=== PATIENT | female | born 1990 | race Caucasian/White ===

== ENCOUNTER 2016-10-11 20:34 | Emergency (ER) | payer OTHER ==
[~2016-10-11] VITALS: Ht 170.2 cm; Wt 86.2 kg
[2016-10-11 20:49] VITALS: BP_SYST 126
== END 2016-10-11 22:16 | disposition home or self-care (01) ==
LOC: SED 20:34
DX: S20.20XA Contusion of thorax, unspecified, initial encounter (principal); W19.XXXA Unspecified fall, initial encounter; Y93.89 Activity, other specified; Y99.8 Other external cause status; Y92.89 Other specified places as the place of occurrence of the external cause
CPT/HCPCS: 71100; 81025; 99284

== ENCOUNTER 2016-11-17 20:58 | Emergency (ER) | payer OTHER ==
[~2016-11-17] VITALS: Ht 170.2 cm; Wt 86.2 kg
[2016-11-17 21:53] VITALS: BP 109/64; PULSE 75; RESP 14; TEMP 97.9; O2SAT 99
[2016-11-17 22:22] LABS: BILIRUBIN,URINE NEGATIVE (NEGATIVE); BLOOD, URINE 1+ (NEGATIVE); CLARITY/URINE HAZY (CLEAR); COLOR,URINE YELLOW (YELLOW); GLUCOSE,URINE NEGATIVE (NEGATIVE); KETONES,URINE NEGATIVE (NEGATIVE); LEUKOCYTE ESTERASE ,URINE 2+ (NEGATIVE); NITRITE, URINE NEGATIVE (NEGATIVE); PROTEIN URINE NEGATIVE (NEGATIVE); UROBILINOGEN,URINE 0.2 (0.2-1.0)
[2016-11-17 22:28] LABS: RBC,URINE 0-3 /HPF (0-3); WBC,URINE 50-80 /HPF (0-3)
[2016-11-17 22:29] LABS: BACTERIA,URINE MODERATE /HPF (None Seen); MUCUS,URINE None Seen /LPF (None Seen)
[2016-11-18] MEDS ORDERED: cefTRIAXone 250 MG VIAL IM ONE (00:30)
[2016-11-18] MEDS ORDERED: AZITHROMYCIN 100 MG/5 ML SUSPENSION PO ONE (00:30)
[2016-11-18] MEDS ORDERED: AZITHROMYCIN 250 MG TABLET ONE (00:46)
[2016-11-18 01:15] VITALS: BP 110/62; PULSE 75; RESP 14; TEMP 97.9; O2SAT 99
[2016-11-20 07:07] LABS: CHLAMYDIA TRACHOMATIS NAA Negative (Negative); NEISSERIA GONORRHOEAE NAA Negative (Negative)
== END 2016-11-18 01:15 | disposition home or self-care (01) ==
LOC: SED 20:58
DX: N39.0 Urinary tract infection, site not specified (principal); Z11.3 Encounter for screening for infections with a predominantly sexual mode of transmission
CPT/HCPCS: 81000; 87086; 87491; 87591; 96372; 99284; J0696; Q0144; 87186-TC

== ENCOUNTER 2017-02-25 22:08 | Emergency (ER) | payer OTHER ==
[~2017-02-25] VITALS: Ht 170.2 cm; Wt 86.2 kg
[2017-02-25 22:08] VITALS: BP_SYST 113
[2017-02-25 23:35] VITALS: BP_SYST 113
== END 2017-02-25 23:35 | disposition home or self-care (01) ==
LOC: SED 22:08
DX: F41.9 Anxiety disorder, unspecified (principal); V49.9XXA Car occupant (driver) (passenger) injured in unspecified traffic accident, initial encounter; Y93.89 Activity, other specified; Y92.89 Other specified places as the place of occurrence of the external cause; Y99.8 Other external cause status
CPT/HCPCS: 99283

== ENCOUNTER 2017-04-02 12:55 | Emergency (ER) | payer OTHER ==
[~2017-04-02] VITALS: Ht 170.2 cm; Wt 86.2 kg
[2017-04-02 13:07] VITALS: BP 122/69; PULSE 91; RESP 16; TEMP 97.6; O2SAT 98
[2017-04-02] MEDS ORDERED: KETOROLAC TROMETHAMINE 60 MG/2 ML VIAL IM ONE (13:30)
[2017-04-02] MEDS ORDERED: DEXAMETHASONE SOD PHOSPHATE 10 MG/ML VIAL IM ONE (13:30)
[2017-04-02 15:50] VITALS: BP 120/65; PULSE 86; RESP 17; TEMP 97.6; O2SAT 98
== END 2017-04-02 15:50 | disposition home or self-care (01) ==
LOC: SED 12:55
DX: M54.17 Radiculopathy, lumbosacral region (principal); R03.0 Elevated blood-pressure reading, without diagnosis of hypertension; M25.561 Pain in right knee; K21.9 Gastro-esophageal reflux disease without esophagitis
CPT/HCPCS: 72131; 81025; 96372; 99284; J1100; J1885

== ENCOUNTER 2018-01-04 17:22 | Emergency (ER) | payer OTHER ==
[~2018-01-04] VITALS: Ht 170.2 cm; Wt 86.2 kg
[2018-01-04 17:33] VITALS: BP_SYST 139
[2018-01-04] MEDS ORDERED: AZITHROMYCIN 250 MG TABLET PO ONE (18:00)
[2018-01-04] MEDS ORDERED: cefTRIAXone 250 MG VIAL IM ONE (18:00)
[2018-01-04 18:03] LABS: BILIRUBIN,URINE NEGATIVE (NEGATIVE); BLOOD, URINE 3+ (NEGATIVE); CLARITY/URINE SL HAZY (CLEAR); COLOR,URINE YELLOW (YELLOW); GLUCOSE,URINE NEGATIVE (NEGATIVE); KETONES,URINE NEGATIVE (NEGATIVE); LEUKOCYTE ESTERASE ,URINE 1+ (NEGATIVE); NITRITE, URINE NEGATIVE (NEGATIVE); PROTEIN URINE NEGATIVE (NEGATIVE); UROBILINOGEN,URINE 0.2 (0.2-1.0)
[2018-01-04 18:29] LABS: RBC,URINE 0-3 /HPF (0-3); WBC,URINE 0-3 /HPF (0-3)
[2018-01-04 18:30] LABS: BACTERIA,URINE FEW /HPF (None Seen); MUCUS,URINE None Seen /LPF (None Seen)
[2018-01-04 18:45] VITALS: BP_SYST 130
[2018-01-07 01:22] LABS: NEISSERIA GONORRHOEAE NAA Negative (Negative)
== END 2018-01-04 18:45 | disposition home or self-care (01) ==
LOC: SED 17:22
DX: Z11.3 Encounter for screening for infections with a predominantly sexual mode of transmission (principal); A74.9 Chlamydial infection, unspecified; N39.0 Urinary tract infection, site not specified; N30.90 Cystitis, unspecified without hematuria; R03.0 Elevated blood-pressure reading, without diagnosis of hypertension; K21.9 Gastro-esophageal reflux disease without esophagitis
CPT/HCPCS: 81000; 81025; 87086; 87491; 87591; 96372; 99284; J0696; Q0144

== ENCOUNTER 2019-01-25 22:07 | Emergency (ER) | payer OTHER ==
[~2019-01-25] VITALS: Ht 170.2 cm; Wt 86.2 kg
--- NOTE | 2019-01-25 22:14 | NUR ---
Patient to ER bed 6 to gown for evaluation. Side rails up.
[2019-01-25 22:18] VITALS: BP_SYST 121
--- NOTE | 2019-01-25 22:57 | NUR ---
Dr. Zhu bedside for Pt eval
--- NOTE | 2019-01-25 23:05 | NUR ---
Pt BIB family to ED C/O right shoulder pain radiating to the right arm and down the back for 2 weeks, worse today. Pt also reports of right-sided forehead pain and radiation of pain to her right leg when standing. She describes her symptoms as sharp in nature, rating it as 8/10 in intensity that is worse with movement. Denies taking any medication for her symptoms prior to arrival. States she recently moved residences, and may have possibly strained her shoulder. No other complaints and or injuries noted. VSS no s/s of acute distress. Resting on gurney with rails up
--- NOTE | 2019-01-25 23:24 | NUR ---
Pt taken to Radiology in stable condition
[2019-01-25 23:28] LABS: BILIRUBIN,URINE NEGATIVE (NEGATIVE); BLOOD, URINE 3+ (NEGATIVE); CLARITY/URINE CLEAR (CLEAR); COLOR,URINE YELLOW (YELLOW); GLUCOSE,URINE NEGATIVE (NEGATIVE); KETONES,URINE NEGATIVE (NEGATIVE); LEUKOCYTE ESTERASE ,URINE NEGATIVE (NEGATIVE); NITRITE, URINE NEGATIVE (NEGATIVE); PROTEIN URINE NEGATIVE (NEGATIVE); UROBILINOGEN,URINE 0.2 (0.2-1.0)
--- NOTE | 2019-01-25 23:36 | NUR ---
Pt back from Radiology, well tolerated
[2019-01-25 23:44] LABS: BACTERIA,URINE FEW /HPF (None Seen); RBC,URINE 20-50 /HPF (0-3); WBC,URINE 0-3 /HPF (0-3)
[2019-01-26 00:15] LABS: BASOPHILS % (AUTO) 0.4 % (0.0-2.0); EOSINOPHILS # (AUTO) 0.1 K/uL (0.0-0.4); EOSINOPHILS % (AUTO) 1.7 % (0.0-4.0); HEMATOCRIT 40.4 % (36-48); HEMOGLOBIN 13.5 g/dL (12.0-16.0); LYMPHOCYTES # (AUTO) 2.3 K/uL (1.0-5.5); LYMPHOCYTES % (AUTO) 29.2 % (20.5-51.5); MEAN CORPUSCULAR HEMOGLOBIN 31 pg (27-31); MEAN CORPUSCULAR HGB CONC 34 % (32-36); MEAN CORPUSCULAR VOLUME 92 fL (79.0-98.0); MONOCYTES # (AUTO) 0.6 K/uL (0.0-1.0); MONOCYTES % (AUTO) 7.8 % (1.7-9.3); NEUTROPHILS # (AUTO) 4.9 K/uL (1.8-7.7); NEUTROPHILS % (AUTO) 60.9 % (40.0-70.0); PLATELET COUNT (AUTO) 213 K/uL (130-430); RED BLOOD CELL COUNT(AUTO) 4.41 MIL/uL (4.2-6.2); RED CELL DISTRIBUTION WIDTH 12.7 % (9.0-15.0)
[2019-01-26 00:23] LABS: CALCIUM 9.1 mg/dL (8.4-11.0); CREATININE 0.82 mg/dL (0.55-1.30); POTASSIUM 4.5 mmol/L (3.5-5.1)
[2019-01-26 00:29] LABS: ALBUMIN 3.7 g/dL (3.4-4.8); TOTAL BILIRUBIN 0.3 mg/dL (0.0-1.0)
--- NOTE | 2019-01-26 01:25 | NUR ---
Dr. Zhu bedside to update Pt condition
[2019-01-26 01:35] VITALS: BP_SYST 121
--- NOTE | 2019-01-26 01:35 | NUR ---
Patient given written and verbal discharge instructions and verbalizes understanding. ER MD discussed with patient the results and treatment provided. Patient in stable condition. ID arm band removed. Rx of Methocarbamol given. Patient educated on pain management and to follow up with PMD. Pain Scale 0/10. Opportunity for questions provided and answered. Medication side effect fact sheet provided.
== END 2019-01-26 01:35 | disposition home or self-care (01) ==
LOC: SED 22:07
DX: S43.401A Unspecified sprain of right shoulder joint, initial encounter (principal); M54.12 Radiculopathy, cervical region; X58.XXXA Exposure to other specified factors, initial encounter; Y93.89 Activity, other specified; Y92.89 Other specified places as the place of occurrence of the external cause; Y99.8 Other external cause status
CPT/HCPCS: 36415; 72125-TC; 73030; 80053; 81000-TC; 81025; 85025; 99284